=== PATIENT | female | born 2000 | race Caucasian/White ===

== ENCOUNTER → 2025-03-14 | Outpatient (CLI) | payer BC ==
[2025-03-14 18:40] LABS: PLATELET COUNT, AUTOMATED 323 10^3/uL (150-450)
[2025-03-14 19:06] LABS: ALT/SGPT 18 U/L (7.0-40); AST/SGOT 17 U/L (<34); CALCIUM LEVEL 9.5 MG/DL (8.5-10.1); CARBON DIOXIDE LEVEL 24 MMOL/L (20-31); CHLORIDE LEVEL 105 MMOL/L (98-107); CREATININE FOR GFR 0.85 MG/DL (0.55-1.30); GLOMERULAR FILTRATION RATE > 90.0 (>60); POTASSIUM SERUM 4.1 MMOL/L (3.5-5.1); SODIUM LEVEL 138 MMOL/L (136-145); THYROXINE (T4) 11.0 UG/DL (4.5-10.9)
[2025-03-14 19:08] LABS: LUTEINIZING HORMONE 7.0 mIU/ML; TOTAL 25(OH) VITAMIN D 25.5 NG/ML (20.0-100.0)
== END ==
LOC: M LAB 16:42
DX: N92.0 Excessive and frequent menstruation with regular cycle (principal); D50.9 Iron deficiency anemia, unspecified; R53.83 Other fatigue; E55.9 Vitamin D deficiency, unspecified; Z13.220 Encounter for screening for lipoid disorders